=== PATIENT | female | born 1950 | race Caucasian/White ===

== ENCOUNTER 2019-09-27 07:47 | Emergency (ER) | payer OTHER ==
[~2019-09-27] VITALS: Ht 154.9 cm; Wt 83.9 kg
[2019-09-27] MEDS ORDERED: IRBESARTAN-HCT1 EAC1 (07:55)
[2019-09-27] MEDS ORDERED: ASPIR 8181 MG (07:55)
== END 2019-09-27 13:14 | disposition home or self-care (01) ==
LOC: ER 07:47
DX: R42 Dizziness and giddiness (principal)

== ENCOUNTER 2020-01-17 07:42 | Emergency (ER) | payer OTHER ==
[~2020-01-17] VITALS: Ht 154.9 cm; Wt 83.0 kg
[~2020-01-17 07:42] MED LIST: ASPIR 8181 MG; IRBESARTAN-HCT1 EAC1
== END 2020-01-17 13:25 | disposition home or self-care (01) ==
LOC: ER 07:42
DX: J06.9 Acute upper respiratory infection, unspecified (principal); J32.8 Other chronic sinusitis

== ENCOUNTER 2022-10-20 06:41 | Emergency (ER) | payer OTHER ==
[~2022-10-20] VITALS: Ht 154.9 cm; Wt 71.7 kg
== END 2022-10-20 07:49 | disposition home or self-care (01) ==
LOC: ER 06:41
DX: B34.8 Other viral infections of unspecified site (principal)